=== PATIENT | female | born 1955 | race Caucasian/White ===

== ENCOUNTER 2016-11-24 06:13 | Day surgery (SDC) | payer BC ==
[~2016-11-24] VITALS: Ht 154.9 cm; Wt 83.5 kg
[~2016-11-24 06:13] MED LIST: ADVIL200 MG PO; ATIVAN1 MG PO; FLONASE16 G1 BOTH NARES; PROBIOTIC1 EAC5 PO; PROPRANOLOL HCL10 MG PO; VITAMIN D32000 UNI1 PO; XOPENEX HF200 INHALA IH
[2016-11-24 07:47] VITALS: BP 118/64
[2016-11-24 09:50] VITALS: BP 140/63
[2016-11-24 10:50] VITALS: BP 136/61
== END 2016-11-24 11:12 | disposition home or self-care (01) ==
LOC: SDC 06:13
DX: D06.9 Carcinoma in situ of cervix, unspecified (principal); B97.7 Papillomavirus as the cause of diseases classified elsewhere; I10 Essential (primary) hypertension; F41.9 Anxiety disorder, unspecified
CPT/HCPCS: 88305; 88307; J0690; J1100; J2405; J3010; Q0175

== ENCOUNTER → 2017-02-22 | Outpatient (CLI) | payer BC ==
[~2017-02-22] MED LIST changes: +VITAMIN D31000 UNIT PO; -VITAMIN D32000 UNI1 PO; +ZYRTEC10 M2 PO
== END | disposition home or self-care (01) ==
LOC: CDC 12:54
DX: Z01.810 Encounter for preprocedural cardiovascular examination (principal)
CPT/HCPCS: 93000

== ENCOUNTER 2017-02-28 05:18 | Day surgery (SDC) | payer BC ==
[~2017-02-28] VITALS: Ht 152.4 cm; Wt 45.0 kg
[2017-02-28 06:19] VITALS: BP 137/70
[2017-02-28 15:22] VITALS: BP 126/57
[2017-02-28 19:32] VITALS: BP 154/67
[2017-02-28 23:38] VITALS: BP 121/59
[2017-03-01 04:01] VITALS: BP 133/61
[2017-03-01 06:31] VITALS: BP 126/61
[2017-03-01 07:11] LABS: BASOPHIL (%) 0.1 % (0-1); EOSINOPHIL (%) 0.2 % (0-5); HEMATOCRIT 38.3 % (36.0-46.0); IMMATURE GRANULOCYTE (%) 0.5 % (0.0-0.7); LYMPHOCYTE (%) 14.9 % (15-42); MCH 30.5 PG (29.0-34.0); MCHC 32.6 G/DL (30.0-36.0); MCV 93.4 FL (83-99); MONOCYTE (%) 7.8 % (3-12); NEUTROPHIL (%) 76.5 % (45-76); NEUTROPHIL COUNT 10.1 K/uL (1.8-6.4); PLATELET COUNT 217 K/uL (156-360); RBC DIS.WIDTH-CV 12.6 % (11.8-14.6); RBC DIS.WIDTH-SD 43.6 % (39-53); WHITE BLOOD COUNT 13.2 K/uL (4.1-10.2)
[2017-03-01 07:18] LABS: HEMOGLOBIN 12.5 G/DL (11.9-15.5)
[2017-03-01 07:33] LABS: CHLORIDE 108 MEQ/L (99-109); CREATININE 0.6 MG/DL (0.6-1.3); GFR ESTIMATE (CALCULATED) > 59 mL/min/; GLUCOSE 128 mg/dL (70-99); POTASSIUM 4.8 MEQ/L (3.7-5.4); SODIUM 143 MEQ/L (136-147); UREA NITROGEN (BUN) 6 mg/dL (9-23)
[2017-03-01 08:48] VITALS: BP 126/61
== END 2017-03-01 10:53 | disposition home or self-care (01) ==
LOC: SDC → 2SOUTH 08:55 → ENRESERV 09:05 → SDC 14:14 → ENRESERV 14:16 → 2EASTP 15:15 → SDC 16:37 → 2EASTP 03-01 10:53
PROVIDERS: Obstetrics & Gynecology Gynecology
PROC: 0UT97ZZ Resection of Uterus, Via Natural or Artificial Opening (ICD-10-PCS; principal; 2017-02-28)
DX: D06.9 Carcinoma in situ of cervix, unspecified (principal); N80.0 Endometriosis of uterus; R87.810 Cervical high risk human papillomavirus (HPV) DNA test positive; I10 Essential (primary) hypertension; F41.9 Anxiety disorder, unspecified; N95.2 Postmenopausal atrophic vaginitis
CPT/HCPCS: 80048; 85025; 87086; 88307; 99202; G0378; J0690; J1100; J1885; J2001; J2250; J2405; J3010; J3475; J7120; Q0175